=== PATIENT | male | born 1990 | race Caucasian/White ===

== ENCOUNTER 2024-02-24 22:36 | Emergency (ER) | payer OTHER ==
[2024-02-24] MEDS ORDERED: Sodium Chloride 0.9% 10 ML Syringe FLUSH PRN (23:07)
[2024-02-24] MEDS: Lactated Ringers 1,000 ML IV ONE (23:15)
[2024-02-24 23:19] LABS: BASOPHILS PERCENT AUTO 0.4 % (0.2-1.2); HEMATOCRIT 41.9 % (40.0-52.0); HEMOGLOBIN 15.4 g/dL (14.0-18.0); IMMATURE GRAN ABSOLUTE AUTO 0.02 x10^3/uL (0.00-0.07); LYMPHOCYTES PERCENT AUTO 7.2 % (25.0-50.0); MEAN CORPUSCULAR HEMOGLOBIN 35.3 pg (26.0-32.0); MEAN CORPUSCULAR HGB CONC 36.8 g/dL (32.0-36.0); MEAN CORPUSCULAR VOLUME 96.1 fL (78.0-93.0); MONOCYTES ABSOLUTE AUTO 0.8 x10^3/uL (0.0-0.8); MONOCYTES PERCENT AUTO 10.8 % (2.0-11.0); NEUTROPHILS ABSOLUTE AUTO 5.8 x10^3/uL (1.8-7.7); NEUTROPHILS PERCENT AUTO 81.3 % (50.0-80.0); PLATELET COUNT,PLT 180 x10^3/uL (130-400); RED BLOOD CELL COUNT 4.36 x10^6/uL (4.5-6.0); WHITE BLOOD CELL COUNT,WBC 7.2 x10^3/uL (4.0-10.0)
[2024-02-24] MEDS: LORazepam 2 MG/ML SDV IVPUSH ONE (23:20)
[2024-02-24 23:23] LABS: LYMPHOCYTES ABSOLUTE AUTO 0.5 x10^3/uL (1.0-4.8)
[2024-02-24 23:47] LABS: A/G RATIO 1.11; ALANINE AMINOTRANSFERASE,ALT 91 U/L (16-63); ALBUMIN 4.1 g/dL (3.4-5.0); ALKALINE PHOSPHATASE 82 U/L (46-116); ANION GAP 19.7 mmol/L (5-15); ASPARTATE AMNIOTRANSFERASE,AST 89 U/L (15-37); BLOOD UREA NITROGEN,BUN 5 mg/dL (7-18); CALCIUM 9.3 mg/dL (8.5-10.1); CARBON DIOXIDE,CO2 25 mmol/L (21-32); CHLORIDE,CL 96 mmol/L (98-107); CREATININE 0.9 mg/dL (0.70-1.30); EST CRCL DRUG DOSING (CG) 127.62 mL/min; ESTIMATED GFR 115 mL/min (>=60); GLUCOSE RANDOM 143 mg/dL (70-99); POTASSIUM,K 2.7 mmol/L (3.5-5.1); PROTEIN TOTAL,TP 7.8 g/dL (6.4-8.2); SODIUM,NA 138 mmol/L (136-145)
[2024-02-24 23:48] LABS: ETHANOL BLOOD MEDICAL < 3 mg/dL (0-3)
[2024-02-24] MEDS: Potassium Chloride 20 MEQ Tab.ER PO ONE (23:53)
== END 2024-02-25 00:10 | disposition home or self-care (01) ==
LOC: VM.ED 22:36
DX: E86.0 Dehydration (principal); E87.6 Hypokalemia; F45.8 Other somatoform disorders
CPT/HCPCS: 80053; 80307; 84484; 85025; 96361; 96374; 99284; 99284-25; A9270-GY; J2060; J7120